=== PATIENT | female | born 1965 | race Caucasian/White ===

== ENCOUNTER 2018-04-09 06:16 | Day surgery (SDC) | payer OTHER ==
[2018-03-25 12:40] VITALS: Ht 165.1 cm; Wt 118.0 kg
--- NOTE | 2018-03-25 13:04 | PAT Medication Instructions ---
Service Date March 25, 2018. Current Home Medication List Albuterol (Ventolin Hfa), 2 PUFFS INH PRN Fluticasone Prop/Salmeterol (Advair Diskus 250-50 Mcg/Dose), 2 INHA INH BID Ibuprofen Tab (Advil), 800 MG PO PRN Latanoprost (Xalatan 0.005% Oph Juju), 1 DROPS OP HS Medication Instructions For Your Scheduled Surgery -Check with your surgeon if you need to use: Ibuprofen Tab (Advil), 800 MG PO PRN - Take the following medications the morning of surgery with a sip of water: Albuterol (Ventolin Hfa), 2 PUFFS INH PRN (bring this with you to the hospital) Fluticasone Prop/Salmeterol (Advair Diskus 250-50 Mcg/Dose), 2 INHA INH BID - Take the following medications as scheduled the night before surgery: Albuterol (Ventolin Hfa), 2 PUFFS INH PRN (if needed) Fluticasone Prop/Salmeterol (Advair Diskus 250-50 Mcg/Dose), 2 INHA INH BID Latanoprost (Xalatan 0.005% Oph Juju), 1 DROPS OP HS If you have any questions please call us at [phone] or [phone] or [phone]
--- NOTE | 2018-03-25 13:54 | DIAGNOSTIC IMAGING REPORT ---
TWO VIEW CHEST CLINICAL HISTORY: Preoperative examination. FINDINGS: PA and lateral chest radiographs are obtained. No prior studies are available for comparison at the time of dictation. The cardiomediastinal silhouette is unremarkable. There is mild bibasilar scarring/atelectasis. There is a questionable nodular density in the right upper lobe measuring 9 mm. No airspace consolidation or pleural effusion is identified. There is no pneumothorax. The skeletal structures are osteopenic. The bony thorax appears intact. Surgical clips are noted in the upper abdomen. IMPRESSION: 1. No active disease in the chest. 2. A 9 mm nodular density is questioned in the right upper lobe. Correlation with a chest CT is recommended for further assessment. Electronically signed by: Kerwin Lazo M.D. 03/25/2018 1:53 PM Dictated Date/Time: 03/25/2018 1:51 PM
[2018-03-25 14:26] LABS: BASO % 0.6 %; BASO ABS # 0.06 K/uL (0-0.2); EOS % 2.8 %; EOS ABS # 0.29 K/uL (0-0.5); HEMATOCRIT 45.9 % (37-47); HEMOGLOBIN 15.4 g/dL (12.0-16.0); IG# 0.01 K/uL (0.00-0.02); LYMPH % 21.4 %; LYMPH ABS # 2.24 K/uL (1.2-3.4); MEAN CORPUSCULAR HEMOGLOBIN 29.8 pg (25-34); MEAN CORPUSCULAR HGB CONC 33.6 g/dl (32-36); MEAN PLATELET VOLUME 8.8 fL (7.4-10.4); MONO % 7.5 %; MONO ABS # 0.79 K/uL (0.11-0.59); NEUT % 67.6 %; NEUT ABS # 7.08 K/uL (1.4-6.5); PLATELET COUNT 293 K/uL (130-400); RED CELL DISTRIBUTION WIDTH CV 13.1 % (11.5-14.5); WHITE BLOOD COUNT 10.47 K/uL (4.8-10.8)
[2018-03-25 14:28] LABS: HEMOGLOBIN A1C 5.8 % (4.5-5.6)
[2018-03-25 14:36] LABS: PTT PATIENT 29.9 SECONDS (21.0-31.0)
[2018-03-25 15:54] LABS: CALCIUM 9.4 mg/dl (8.5-10.1); CREATININE 0.9 mg/dl (0.60-1.20); POTASSIUM 3.9 mmol/L (3.5-5.1)
[~2018-04-09] VITALS: Ht 165.1 cm; Wt 118.0 kg
[~2018-04-09 06:16] MED LIST: ADVIN25050 INH; IBUP-103 PO; LACTATED RINGER'S 1000ML 1,000 ML IV SCH; LACTATED RINGER'S 1000ML 500 ML IV SCH; LATA0.5S OP; PRVHFAIN INH
[2018-04-09 06:42] VITALS: PULSE 75; TEMP 36.7; O2SAT 97
--- NOTE | 2018-04-09 07:07 | History & Physical Bridge Note ---
H&P Re-Evaluation Bridge Note: I have examined the patient, reviewed the History & Physical and in the interval since the performance of the History & Physical I have noted the following changes of clinical significance: No changes noted
[2018-04-09] MEDS ORDERED: FENTANYL CITRATE INJ 50 MCG/1 ML 2 ML VIAL IV PRN (08:00)
[2018-04-09] MEDS ORDERED: ATROPINE SULFATE 0.1 MG/ML 5ML SYR IV PRN (08:00)
[2018-04-09] MEDS ORDERED: ONDANSETRON INJ 2 MG/ML 2 ML VIAL IV PRN ×2 (08:00→09:30)
[2018-04-09] MEDS ORDERED: LABETALOL HCL IV 5 MG/ML 20ML IV PRN (08:00)
[2018-04-09] MEDS ORDERED: SUCCINYLCHOLINE CHLORIDE 20 MG/ML 10 ML VIAL IV ONE (08:06)
[2018-04-09] MEDS ORDERED: LIDOCAINE HCL 2% 2 ML VIAL (20MG/ML) ONE (08:06)
[2018-04-09] MEDS ORDERED: GLYCOPYRROLATE INJ 0.2 MG/ML VIAL ONE (08:06)
[2018-04-09] MEDS ORDERED: DEXAMETHASONE SOD INJ 4 MG/ML VIAL ONE ×2 (08:06→08:47)
[2018-04-09] MEDS ORDERED: PROPOFOL IV EMULSION 10 MG/ML 20 ML VIAL ONE (08:06)
[2018-04-09] MEDS ORDERED: NEOSTIGMINE METHYLSULFATE 5 MG/5 ML SYR ONE (08:06)
[2018-04-09] MEDS ORDERED: ONDANSETRON INJ 2 MG/ML 2 ML VIAL ONE (08:06)
[2018-04-09] MEDS ORDERED: PHENYLEPHRINE HCL INJ 10 MG/ML VIAL ONE (08:06)
[2018-04-09] MEDS ORDERED: EpHEDrine SULFATE INJ 50 MG/ML AMP ONE (08:06)
[2018-04-09] MEDS ORDERED: FENTANYL CITRATE INJ 50 MCG/1 ML 2 ML VIAL ONE (08:07)
[2018-04-09] MEDS ORDERED: MIDAZOLAM HCL 1 MG/ML 2ML VIAL ONE (08:07)
[2018-04-09] MEDS ORDERED: METOCLOPRAMIDE HCL INJ 5 MG/ML 2 ML VIAL ONE (08:46)
[2018-04-09] MEDS ORDERED: RANITIDINE HCL 25 MG/ML INJ ONE (08:47)
--- NOTE | 2018-04-09 09:15 | [facility] Post Operative Brief Note ---
Immediate Operative Summary Operative Date April 09, 2018. Pre-Operative Diagnosis Post-menopausal Bleeding, Thickened Endometrium Post-Operative Diagnosis Same as preop, endometrial polyp Procedure(s) Performed Exam Under Anesthesia, Hysteroscopy,Polypectomy with Myosure, Dilation Curettage Surgeon Dr. Cho Pitch Gatherer Surgeon(s) None Estimated Blood Loss 10 ML Findings Consistent with Post-Op Diagnosis 1000 ml LR Specimens A. Endometrial Polyp B. Endometrial Curettings Anesthesia Type General Complication(s) none Disposition Accompanied Pt To Recover: yes Disposition: Recovery Room / PACU Overlapping Procedure I was present for: During the entire case
--- NOTE | 2018-04-09 09:18 | Discharge Instructions ---
Discharge Instructions Date of Service April 09, 2018. Admission Reason for Admission: Post-Menopausal Bleeding, Thickened Endometrium Discharge Discharge Diagnosis / Problem: Hysteroscopy, polypectomy, D&C Discharge Goals Goal(s): Continuing [facility] [facility] care Activity Recommendations Activity Limitations: as noted below ACTIVITY RECOMMENDATIONS: * Avoid tampons, douching, hot tubs, pools, and intercourse until bleeding has stopped. * May shower as usual. * No strenuous activity for 24-48 hours. After 24-48 hours, you can do anything you feel like doing (driving and sports are okay). RETURN TO SCHOOL/WORK: * You may return to school or work ON 04/12/18 unless specified by your physician. DIET: * Resume previous diet. MEDICATIONS: Resume previous medications unless instructed otherwise by your surgeon. Ibuprofen 200mg 2-3 tablets every 4-6 hours as needed --OR-- Aleve 2 tablets every 8-12 hours as needed for post-operative discomfort Medications are over the counter. Tylenol may be used if above medications are contraindicated or not preferred. Medication should be taken with food or milk. do not take on an empty stomach. SPECIAL CARE INSTRUCTIONS: * Check temperature twice daily for one week. Report any elevation over 101 degrees. * Call office if you experience increased pelvic pain or discomfort not relieved by pain medicine, if you have foul smelling vaginal discharge, if you have bleeding that is heavier than a normal menstrual flow. If you are changing a maxi pad every 1- 2 hours, this is too heavy. vaginal spotting is normal for 1-2 weeks. FOLLOW UP VISIT: Call your doctor's office for a post-operative visit. . Current Hospital Diet Patient's current hospital diet: Discharge Diet Recommended Diet: Regular Diet Procedures Procedures Performed: Exam Under Anesthesia, Hysteroscopy,Polypectomy with Myosure, Dilation Curettage Pending Studies Studies pending at discharge: yes List of pending studies: Pathology Laboratory Results Hemoglobin A1c Test 03/25/18 13:17 Range/Units Estimated Average Glucose 120 mg/dl Hemoglobin A1c 5.8 H 4.5-5.6 % Medical Emergencies . Who to Call and When: Medical Emergencies: If at any time you feel your situation is an emergency, please call 911 immediately. . Non-Emergent Contact Non-Emergency issues call your: Surgeon, Specialist Call Non-Emergent contact if: temperature is above 100.5, your pain is not controlled, your pain is worsening, your pain is unusual for you . . "Provider Documentation" section prepared by Janelle Lang. .
[2018-04-09] MEDS ORDERED: SODIUM CHLORIDE 0.9% 1000ML 1,000 ML IV SCH (09:22)
[2018-04-09] MEDS ORDERED: KETOROLAC TROMETHAMINE 30 MG/ML VIAL ONE (09:29)
[2018-04-09] MEDS ORDERED: ROCURONIUM BROMIDE 10 MG/ML 5 ML VIAL ONE (09:29)
[2018-04-09] MEDS ORDERED: IBUPROFEN 600 MG TAB PO PRN (09:30)
[2018-04-09] MEDS ORDERED: MoRPHine SULFATE 4 MG/ML 1 ML CARP\\VIAL IV PRN ×2 (09:30)
[2018-04-09] MEDS ORDERED: OXYCODONE/ACETAMINOPHEN 5-325 TAB PO PRN ×2 (09:30)
[2018-04-09] MEDS ORDERED: PROMETHAZINE HCL INJ 25 MG in SODIUM CHLORIDE 0.9% 50ML 50 ML IV PRN (09:30)
--- NOTE | 2018-04-09 09:53 | Anesthesiology Progress Note ---
Anesthesia Post Op Note Date & Time April 09, 2018 at 09:52 Vital Signs Pain Intensity: 0 Vital Signs Past 12 Hours Date Time Temp Pulse Resp B/P (MAP) Pulse Ox O2 Delivery O2 Flow Rate FiO2 04/09/18 09:49 66 17 94 04/09/18 09:49 66 17 04/09/18 09:46 122/76 04/09/18 09:44 65 19 04/09/18 09:44 65 19 98 04/09/18 09:41 125/87 04/09/18 09:39 66 28 98 04/09/18 09:39 65 28 04/09/18 09:38 64 21 04/09/18 09:38 65 21 99 04/09/18 09:36 110/77 04/09/18 09:33 69 16 04/09/18 09:33 69 16 99 04/09/18 09:31 113/83 04/09/18 09:28 69 24 100 04/09/18 09:28 70 24 04/09/18 09:26 123/81 04/09/18 09:24 138/86 04/09/18 09:23 77 18 04/09/18 09:23 77 18 98 04/09/18 09:23 36.1 76 16 138/86 98 Oxymask 10 04/09/18 06:42 36.7 75 18 97 Room Air Notes Mental Status: alert / awake / arousable, participated in evaluation Pt Amnestic to Procedure: Yes Nausea / Vomiting: adequately controlled Pain: adequately controlled Airway Patency, RR, SpO2: stable & adequate BP & HR: stable & adequate Hydration State: stable & adequate Anesthetic Complications: no major complications apparent
[2018-04-09 10:00] VITALS: BP 124/76; PULSE 51; TEMP 36.5; O2SAT 95
[2018-04-09 10:30] VITALS: BP 127/77; PULSE 59; O2SAT 97
--- NOTE | 2018-04-09 12:02 | OPERATIVE REPORT ---
DATE OF OPERATION: 04/09/2018 PREOPERATIVE DIAGNOSES: The patient is a 52-year-old G2, P2-0-0-2 with postmenopausal bleeding, thickened endometrium, insufficient office biopsy. POSTOPERATIVE DIAGNOSES: The patient is a 52-year-old G2, P2-0-0-2 with postmenopausal bleeding, thickened endometrium, insufficient office biopsy, and endometrial polyp. PROCEDURE: Exam under anesthesia, hysteroscopy, polypectomy with MyoSure, and dilatation and curettage. SURGEON: Janelle Lang MD ASSISTANTS: OR nurses. ESTIMATED BLOOD LOSS: 10 mL. FLUIDS: 1000 mL of lactated Ringer's. SPECIMENS: Endometrial polyp and endometrial curettings. ANESTHESIA: General endotracheal. COMPLICATIONS: None. FINDINGS: Exam under anesthesia revealed an anteverted normal-sized uterus, a nonpalpable adnexa, and mild cystocele and rectocele. Hysteroscopic findings, normal endocervical canal, normal endometrium except there was a 1 x 2 cm polyp in the upper endometrial cavity close to the left tubal ostia. The rest of the endometrium appeared to be normal, pale and atrophic. DESCRIPTION OF PROCEDURE: The patient was taken to the operating room where general anesthesia was given without difficulty. She was placed in dorsal lithotomy position, prepared and draped in usual sterile fashion. A straight catheter was used to drain the bladder, 200 mL of clear urine was obtained. An exam under anesthesia was done with the above findings. Gloves were changed. A weighted speculum was placed in the patient's vagina and the bladder was retracted with Treviño wall and the cervix was visualized, grasped with a single tooth tenaculum. The cervical os was dilated with Hegar dilators until #7 and then MyoSure hysteroscope was introduced from the cervix. Fluid/ normal saline was started. The uterine cavity was visualized and the polyp was identified. Pictures were taken. Then LITE MyoSure device was introduced from the hysteroscope and under direct visualization, the polyp was cut and suctioned and excised completely with its tip. The rest of the endometrium appeared to be normal and then the hysteroscope was removed. The uterine cavity was curetted with a small sharp curette, producing moderate amounts of material and was sent to the pathology. Instruments were removed from the patient's vagina. The tenaculum site was hemostatic and the patient was dried cleaned, taken out from lithotomy position. No complications happened. I was present during the whole procedure. At the end of the procedure, sponge, lap, and instrument count was correct x3. The patient was taken to the recovery room in stable condition. I attest to the content of the Intraoperative Record and any orders documented therein. Any exceptions are noted below. MTDD
== END 2018-04-09 10:57 | disposition home or self-care (01) ==
LOC: C.ACU 06:16
PROVIDERS: ATTEND Obstetrics & Gynecology
DX: N95.0 Postmenopausal bleeding (principal); N85.8 Other specified noninflammatory disorders of uterus; N84.0 Polyp of corpus uteri; J45.909 Unspecified asthma, uncomplicated; Z79.899 Other long term (current) drug therapy; Z98.890 Other specified postprocedural states; Z90.89 Acquired absence of other organs; E66.01 Morbid (severe) obesity due to excess calories; Z68.41 Body mass index [BMI] 40.0-44.9, adult; M19.90 Unspecified osteoarthritis, unspecified site